=== PATIENT | male | born 1995 | race Caucasian/White ===

== ENCOUNTER 2017-07-13 12:18 | Emergency (ER) | payer SELFPAY ==
[~2017-07-13] VITALS: Ht 187.9 cm
[~2017-07-13 12:18] MED LIST: AMOXICILLIN,AM875 MG PO; NKHM PO
== END 2017-07-13 14:07 | disposition home or self-care (01) ==
LOC: ED 12:18
DX: S86.911A Strain of unspecified muscle(s) and tendon(s) at lower leg level, right leg, initial encounter (principal); F17.200 Nicotine dependence, unspecified, uncomplicated; Z91.030 Bee allergy status; X58.XXXA Exposure to other specified factors, initial encounter; Y93.89 Activity, other specified; Y92.89 Other specified places as the place of occurrence of the external cause; Y99.8 Other external cause status

== ENCOUNTER 2017-09-14 06:23 | Emergency (ER) | payer SELFPAY ==
[~2017-09-14] VITALS: Ht 180.3 cm; Wt 104.3 kg
[2017-09-14 08:03] LABS: BILIRUBIN NEGATIVE (NEGATIVE); BLOOD NEGATIVE (NEGATIVE); CLARITY CLEAR (CLEAR); COLOR YELLOW (YELLOW); GLUCOSE NEGATIVE (NEGATIVE); KETONE NEGATIVE (NEGATIVE); LEUKO ESTERASE NEGATIVE (NEGATIVE); NITRITE NEGATIVE (NEGATIVE); PH 5.5 (5.0-9.0); UROBILINOGEN 0.2 E.U./dl (0.2-1.0)
[2017-09-14 08:12] LABS: RBC 0-2 rbc/hpf (0-2); WBC 0-2 wbc/hpf (0-5)
== END 2017-09-14 10:03 | disposition home or self-care (01) ==
LOC: ED 06:23
PROVIDERS: Emergency Medicine
DX: R10.32 Left lower quadrant pain (principal); F17.200 Nicotine dependence, unspecified, uncomplicated; Z79.899 Other long term (current) drug therapy; Z91.030 Bee allergy status; Z98.890 Other specified postprocedural states

== ENCOUNTER 2022-12-29 11:27 | Emergency (ER) | payer SELFPAY ==
[~2022-12-29] VITALS: Ht 187.9 cm; Wt 113.4 kg
[~2022-12-29 11:27] MED LIST changes: +PREDNISONE20 M1 PO; +ZITHROMAX250 MG PO
[2022-12-29] MEDS ORDERED: ONDANSETRON4 MG SL (11:57)
== END 2022-12-29 12:05 | disposition home or self-care (01) ==
LOC: ED 11:27
DX: R11.2 Nausea with vomiting, unspecified (principal); F90.9 Attention-deficit hyperactivity disorder, unspecified type; Z91.030 Bee allergy status; Z98.890 Other specified postprocedural states

== ENCOUNTER 2023-12-07 09:29 | Emergency (ER) | payer SELFPAY ==
[~2023-12-07] VITALS: Ht 187.9 cm; Wt 113.4 kg
[~2023-12-07 09:29] MED LIST changes: +ONDANSETRON4 MG SL
[2023-12-07 10:04] LABS: BASO # 0.1 10*3/uL (0.0-0.1); BASO % 0.8 % (0.0-1.0); EOS # 0.2 10*3/uL (0.0-0.4); EOS % 2.9 % (1.0-4.0); HEMATOCRIT 48.7 % (42.0-52.0); LYMPH # 2.1 10*3/uL (1.3-4.4); LYMPH % 28.9 % (27.0-41.0); MEAN CELL VOLUME 87.6 fl (80.0-94.0); MEAN CORPUSCULAR HGB 28.4 pg (27.0-31.0); MEAN CORPUSCULAR HGB CONC 32.4 g/dl (33.0-37.0); MEAN PLATELET VOLUME 10.3 fl (9.6-12.3); MONO # 0.8 10*3/uL (0.1-1.0); MONO % 10.9 % (3.0-9.0); NEUT # 4.1 10*3/uL (2.3-7.9); NEUT % 55.9 % (47.0-73.0); PLATELET COUNT AUTOMATED 188 10*3/uL (130-400); RED BLOOD COUNT 5.56 10*6/uL (4.50-5.90); WHITE BLOOD COUNT 7.3 10*3/uL (4.8-10.8)
[2023-12-07 10:27] LABS: ALKALINE PHOSPHATASE 73 U/L (46-116); BUN 11 mg/dl (9-23); CHLORIDE 105 mmol/L (98-107); LIPASE 42 U/L (12-53); POTASSIUM 4.2 mmol/L (3.4-5.1); SGPT/ALT 45 U/L (5-49); TOTAL PROTEIN 7.2 gm/dL (6.0-8.0)
== END 2023-12-07 11:00 | disposition home or self-care (01) ==
LOC: ED 09:29
PROVIDERS: Internal Medicine
DX: K52.9 Noninfective gastroenteritis and colitis, unspecified (principal); R11.2 Nausea with vomiting, unspecified; F90.9 Attention-deficit hyperactivity disorder, unspecified type; Z91.030 Bee allergy status; Z88.8 Allergy status to other drugs, medicaments and biological substances; Z98.890 Other specified postprocedural states